=== PATIENT | female | born 1965 | race Caucasian/White ===

== ENCOUNTER → 2024-07-28 12:05 | Outpatient (CLI) | payer OTHER, SELFPAY | PROVIDERS: Visit Provider Chiropractor | DX: L08.9 Local infection of the skin and subcutaneous tissue, unspecified (principal) | CPT/HCPCS: 87070; 87205 ==

== ENCOUNTER 2024-07-28 12:20 | Emergency (ER) | payer OTHER, SELFPAY ==
[2024-07-28 12:27] VITALS: BP 107/55; PULSE 69; RESP 18; TEMP 36.8; O2SAT 97; BMI 21.9
--- NOTE | 2024-07-28 13:26 | ED_ITS ---
HPI - Animal Bite General Chief Complaint: Animal Bite Stated Complaint: pcp ref, RT hand infection Time Seen by Provider: 07/28/24 13:25 Source: patient Mode of arrival: Ambulatory History of Present Illness HPI narrative: Patient is up-to-date with tetanus. Patient was bitten by family pet, dog, is up-to-date with immunizations. Incident occurred 2 days ago on Friday. Patient was seen the same day by walk-in clinic and she states she was started on amoxicillin, not Augmentin. Patient states redness was worse on Friday/Friday afternoon and evening. However it improved yesterday. Redness extended to her forearm/elbow. No armpit pain.. No forearm pain no wrist pain or elbow pain. Patient has full active range of motion at the wrist and elbow. There is a bite herve at the dorsal surface of the 1st metacarpal bone/skin. No red streaking. No lymphadenopathy of the axilla. 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 Able to bring thumb across the palm. No crepitus. No pain out of portion exam. It was erythema at the dorsal surface of the 1st and 2nd metacarpal space is and does extend slightly to the IP joint of the thumb. It does cross over the wrist slightly by 3 cm. Related Data Home Medications ?Medication ?Instructions ?Recorded ?Confirmed cyclosporine 0.05 % eye drops in a drp ophthalmic (eye ) 07/26/24 07/29/24 dropperette meloxicam 7.5 mg tablet 7.5 mg PO BID 07/26/2407/29 Previous Rx's ?Medication ?Instructions ?Recorded amoxicillin 875 mg-potassium 1 tab PO BID #20 tabs clavulanate 125 mg tablet doxycycline monohydrate 100 mg 100 mg PO BID #20 caps 07/28/24 capsule Allergies Allergy/AdvReac Type Severity Reaction Status Date / Time No Known Drug Allergies Allergy Unverified 07/29/24 17:31 Review of Systems Review of Systems Narrative: GENERAL: Negative chills, fatigue, malaise, fever, sweats. HEENT: Negative sinus pain, ear pain, sore throat RESPIRATORY: Negative dyspnea, cough CARDIOVASCULAR: Negative chest pain, palpitations GASTROINTESTINAL: Negative vomiting, nausea, abdominal pain : Negative dysuria, frequency, hematuria MUSCULOSKELETAL: Negative muscle or bony pain SKIN: Negative rash, skin lesions, positive skin injury NEUROLOGIC: Negative weakness, numbness ROS Unobtainable: All systems reviewed & are unremarkable except as noted in HPI and below Patient History Social History Smoking Status: Unknown if ever smoked Smoking Status: Never smoker Exam Narrative Exam Narrative: GENERAL: in no distress, not toxic not dyspneic HEAD: Normocephalic. EYES: Pupils equal round EXTREMITIES: No gross deformities. examination right hand, Patient has full active range of motion at the wrist and elbow. There is a bite herve at the dorsal surface of the 1st metacarpal bone/skin. No red streaking. No lymphadenopathy of the axilla. 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 Able to bring thumb across the palm. No crepitus. No pain out of portion exam. It was erythema at the dorsal surface of the 1st and 2nd metacarpal space is and does extend slightly to the IP joint of the thumb. It does cross over the wrist slightly by 3 cm. NEURO: AOx4. Clear speech SKIN: Warm and dry PSYCH: Not anxious, is cooperative Initial Vital Signs Initial Vital Signs: Vital Signs Temperature 98.2 F 07/28/24 12:27 Pulse Rate 69 07/28/24 12:27 Respiratory Rate 18 07/28/24 12:27 Blood Pressure 107/55 L 07/28/24 12:27 Pulse Oximetry 97 07/28/24 12:27 Oxygen Delivery Method Room Air 07/28/24 12:27 Course Orders Ordered: Discontinued Medications Bacitracin (Bacitracin 28 Gm Oint) 1 applic TOP NOW ONE Stop: 07/28/24 15:16 Last Admin: 07/28/24 15:31 Dose: Not Given Documented By: SAIMA Bacitracin (Bacitracin Oint 0.9 Gm Pckt) 1 applic TOP NOW ONE Stop: 07/28/24 15:19 Last Admin: 07/28/24 15:20 Dose: 1 applic Documented By: SAIMA Doxycycline Hyclate (Doxycycline Hyclate 100 Mg Tablet) 100 mg PO NOW ONE Stop: 07/28/24 13:34 Last Admin: 07/28/24 13:37 Dose: 100 mg Documented By: SAIMA Ceftriaxone Sodium 2,000 mg/ (Sodium Chloride) 100 mls @ 200 mls/hr IV NOW ONE Stop: 07/28/24 13:47 Last Infusion: 07/28/24 14:31 Dose: Infused Documented By: Admin: 07/28/24 13:51 Dose: 200 mls/hr Documented By: SAIMA Vital Signs Vital signs: Vital Signs - 8 hr 07/28/24 12:27 Temperature 98.2 F Pulse Rate 69 Respiratory Rate 18 Blood Pressure 107/55 L Pulse Oximetry 97 Oxygen Delivery Method Room Air MDM - Animal Bite Lab Data 07/28/24 13:29 07/28/24 13:29 Labs: Lab Results 07/28/24 Range/Units 13:29 WBC 6.0 (4.5-11.0) X10^3/uL RBC 4.07 (4.0-5.2) X10^6/uL Hgb 13.6 (12.0-16.0) g/dL Hct 38.8 (36-46) % MCV 95.2 (80-100) fL MCH 33.5 (26-34) PG MCHC 35.2 (30-36) % RDW 13.3 (11.6-14.8) % Plt Count 235 (150-400) X10^3/uL Neut % (Auto) 73.2 (50-75) % Lymph % (Auto) 19.0 L (25-40) % [place] % (Auto) 6.8 (3-14) % Eos % (Auto) 0.4 L (2-4) % Baso % (Auto) 0.6 (0-2) % Neut # (Auto) 4400 (9808-3267) /uL Lymph # (Auto) 1100 (6602-0693) /uL [place] # (Auto) 400 (0-900) /uL Eos # (Auto) 0 (0-450) /uL Baso # (Auto) 0 (0-100) /uL ESR 43 H (0-20) MM/HR Sodium 137 (137-145) mmol/L Potassium 3.2 L (3.4-5.1) mmol/L Chloride 93 L (98-107) mmol/L Carbon Dioxide 35 H (22-32) mmol/L BUN 24 H (7-17) mg/dL Creatinine 0.85 (0.52-1.04) mg/dL Estimated GFR > 60 (>60) mL/min BUN/Creatinine Ratio 28.2 H (6-22) Glucose 94 (70-99) mg/dL Calcium 9.8 (8.4-10.2) mg/dL Total Bilirubin 0.8 (0.2-1.3) mg/dL AST 43 H (14-36) IU/L ALT 27 (<35) IU/L Alkaline Phosphatase 70 (38-126) U/L C-Reactive Protein 7.0 H (<1.0) mg/dL Total Protein 7.8 (6.3-8.2) g/dL Albumin 4.7 (3.5-5.0) g/dL Globulin 3.1 (1.7-4.1) g/dL Albumin/Globulin Ratio 1.5 (1.0-2.8) Imaging Data Extremity x-ray #1: Radiologist's Impression: [address] [address] XRay Report Signed Patient: Tran Early MR#: [id number] : 1965 Acct:[id number] Age/Sex: 59 / F Date of Service: 07/28/24 Loc: ED Accession Number: [id number] Procedure: XR hand RT min 3V Ordering Provider: Tejas Kim MD PROCEDURE: XR HAND RT MIN 3V INDICATIONS: Pain/injury/dog bite TECHNIQUE: 3 views of the hand acquired. COMPARISON: None. FINDINGS: Bones: No acute fractures or dislocations. Small ossification adjacent to the ulnar styloid tip is likely the sequela of a remote prior injury. Carpal bones are normally aligned. No suspicious bony lesions. Soft tissues: No suspicious soft tissue calcifications. Soft tissue edema is present. No radiopaque foreign body. IMPRESSION: No acute osseous abnormality. No radiopaque foreign body. If there is continued clinical concern or persistent symptoms, repeat radiographs or cross-sectional imaging (e.g. CT, MRI) may be helpful for further evaluation. Approved by: Kelton Gordon M.D. on 07/28/2024 at 13:29 MDM Narrative Medical decision making narrative: Patient is up-to-date with tetanus. Patient was bitten by family pet, dog, is up-to-date with immunizations. Incident occurred 2 days ago on Friday. Patient was seen the same day by walk-in clinic and she states she was started on amoxicillin, not Augmentin. Patient states redness was worse on Friday/Friday afternoon and evening. However it improved yesterday. Redness extended to her forearm/elbow. No armpit pain.. No forearm pain no wrist pain or elbow pain. Patient has full active range of motion at the wrist and elbow. There is a bite herve at the dorsal surface of the 1st metacarpal bone/skin. No red streaking. No lymphadenopathy of the axilla. 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 Able to bring thumb across the palm. No crepitus. No pain out of portion exam. It was erythema at the dorsal surface of the 1st and 2nd metacarpal space is and does extend slightly to the IP joint of the thumb. It does cross over the wrist slightly by 3 cm. After history and exam, CBC CMP x-ray right hand Rocephin MDM Medical records reviewed: No recent visit here for this complaint Differential considered: Includes but not limited to infected dog bite, cellulitis/tenosynovitis Lab Test results independently reviewed as above. Pertinent findings: WBC 6.0 CRP 7.0 ESR 43 Imaging studies independently reviewed: X-ray right hand no acute finding Consultations: 2:02 p.m.. Spoke with Infectious Disease, Dr. Blunt, pending on orthopedic disposition, if patient needs to be admitted observed would recommend Unasyn and vancomycin/daptomycin, however if discharge home from the ER than Augmentin and doxycycline would be a good combination. 3:03 p.m.. I spoke with Orthopedics, Dr. Rankin, reviewed ESR CRP laboratory studies x-ray imaging and exam. At this time with dorsal surface injury likely not tenosynovitis, patient can be discharged home and follow up with him in the clinic. He agrees with Augmentin and doxycycline. Re-evaluations: 3:10 p.m.. Updated patient results. They are reassuring. I spoke with Infectious Disease as well as Orthopedics. Antibiotic changes will be made. She is amenable and agreeable to this. Return precautions reviewed. She desires discharge home. Patient states her hand feels better already. Remains full active range of motion of the wrist and hands and fingers. 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 Nontender thumb and hand. Discussion: Appropriate for discharge home. Exam is reassuring. Return precautions reviewed with patient. Orthopedics as well as Infectious Disease was contacted. Diagnosis: Dog bite infection Discharge Plan Departure Patient Disposition: Home Clinical Impression: Dog bite of dorsum of hand Instructions: DI for Dog Bite Activity Restrictions/Additional Instructions: Change dressing twice a day. ?Clean with warm soap and water, apply thin layer of topical antibiotic. New prescriptions for your antibiotics have been sent to your pharmacy to [facility] today continue tomorrow. Please call provided orthopedic office tomorrow for follow up within a week for re-evaluation of your hand. Return if worse if any questions or concerns Prescriptions: New doxycycline monohydrate 100 mg capsule 100 mg PO BID Qty: 20 0RF amoxicillin-pot clavulanate 875-125 mg tablet 1 tab PO BID Qty: 20 0RF No Action meloxicam 7.5 mg tablet 7.5 mg PO BID cyclosporine 0.05 % dropperette ophthalmic (eye) Patient Comments: [NO ORIGINAL SIG] Referrals: Miscellaneous,[facility] [Primary Care Provider, Medical] Martín Abraham MD [Physician, Orthopedic Surgery] Stand Alone Forms: Patient Portal/API/Survey
[2024-07-28] MEDS: DOXYCYCLINE HYCLATE 100 MG TABLET PO (13:37)
[2024-07-28 13:39] LABS: Add Manual Diff / Slide Review NO; Basophils Absolute Auto 0 /uL (0-100); Basophils Percent Auto 0.6 % (0-2); Eosinophils Absolute Auto 0 /uL (0-450); Eosinophils Percent Auto 0.4 % (2-4); Hematocrit 38.8 % (36-46); Hemoglobin 13.6 g/dL (12.0-16.0); Lymphocytes Absolute Auto 1100 /uL (1100-4500); Mean Corpuscular HGB Conc 35.2 % (30-36); Mean Corpuscular Hemoglobin 33.5 PG (26-34); Mean Corpuscular Volume 95.2 fL (80-100); Monocytes Absolute Auto 400 /uL (0-900); Monocytes Percent Auto 6.8 % (3-14); Neutrophils Absolute Auto 4400 /uL (1500-7000); Neutrophils Percent Auto 73.2 % (50-75); Platelet Count 235 X10^3/uL (150-400); Red Blood Cell Count 4.07 X10^6/uL (4.0-5.2); Red Cell Distribution Width 13.3 % (11.6-14.8)
[2024-07-28 13:51] LABS: Alanine Aminotransferase 27 IU/L (<35); Albumin 4.7 g/dL (3.5-5.0); Albumin Globulin Ratio 1.5 (1.0-2.8); Alkaline Phosphatase 70 U/L (38-126); Aspartate Aminotransferase 43 IU/L (14-36); BUN Creatinine Ratio 28.2 (6-22); Bilirubin Total 0.8 mg/dL (0.2-1.3); Blood Urea Nitrogen 24 mg/dL (7-17); Calcium 9.8 mg/dL (8.4-10.2); Carbon Dioxide 35 mmol/L (22-32); Chloride 93 mmol/L (98-107); Estimated Glomerular Filt Rate > 60 mL/min (>60); Globulin 3.1 g/dL (1.7-4.1); Glucose 94 mg/dL (70-99); HEMOLYSIS < 15 (0-50); Potassium 3.2 mmol/L (3.4-5.1); Sodium 137 mmol/L (137-145); Total Protein 7.8 g/dL (6.3-8.2)
[2024-07-28] MEDS: cefTRIAXone 2,000 MG in SODIUM CHLORIDE 0.9% 100 ML 200 MG IV (13:51)
[2024-07-28 14:41] LABS: Erythrocyte Sedimentation Rate 43 MM/HR (0-20)
[2024-07-28] MEDS: BACITRACIN OINT 0.9 GM PCKT 1 APPLIC TOP (15:20)
[2024-07-28 15:30] VITALS: BP 127/69; PULSE 63; RESP 12; O2SAT 98
== END 2024-07-28 15:31 | disposition home or self-care (01) ==
PROVIDERS: Emergency Provider Emergency Medicine
DX: S61.451A Open bite of right hand, initial encounter (principal); W54.0XXA Bitten by dog, initial encounter; L08.9 Local infection of the skin and subcutaneous tissue, unspecified
CPT/HCPCS: 36415; 73130; 80053; 85025; 85651; 86140; 87070; 87077; 87186; 87205; 96365; 99284; J0696